=== PATIENT | female | born 1935 | race Caucasian/White ===

== ENCOUNTER 2022-08-24 10:20 | Emergency (ER) | payer MEDICARE, SELFPAY ==
[2022-08-24 10:36] VITALS: BP 157/71; PULSE 77; RESP 18; TEMP 36.6; O2SAT 100
--- NOTE | 2022-08-24 11:41 | ED.GENADULT ---
HPI - General Adult General Chief complaint: Unspecified Stated complaint: Dementia needs consult for half-way Time Seen by Provider: 08/24/22 10:53 Source: patient and family Mode of arrival: ambulatory Limitations: dementia History of Present Illness HPI narrative: Patient is an 86-year-old female who presents to the ED with concerns for half-way placement. Patient currently lives at home with her . Her is scheduled to undergo triple bypass surgery on Tuesday and will be hospitalized for at least 3 weeks, with several month rehabilitation afterwards. is concerned that the patient will not be able to take care of herself at home while he is hospitalized/recovering. Patient is never left alone by herself. He reports patient does not cook, clean, do laundry, drive. He also reports patient requires assistance with ambulation at times, assistance with going to the bathroom. They believe patient has a diagnosis of dementia, however she has not seen a primary care doctor in the last 3 years. No acute behavioral changes. They do have family that is able to help, but not for 13/09 care. Patient A&OX2 currently. Unsure of year. She is agitated, annoyed that she is at the hospital, and refusing to answer any other questions for me. Related Data Allergies Allergy/AdvReac Type Severity Reaction Status Date / Time No Known Allergies Allergy Verified 08/24/22 10:21 Review of Systems Review of Systems: ROS unobtainable: Yes unobtainable due to mental status Exam Narrative: GENERAL: Elderly, well-nourished, non-toxic, in no acute distress. HEAD: Normocephalic, atraumatic. NECK: Supple. No adenopathy, no masses. RESPIRATORY: Airway patent, respirations nonlabored. CARDIOVASCULAR: Regular rate and rhythm without murmurs, rubs, or gallops. MUSCULOSKELETAL: Moves all extremities. Strength/ROM intact without gross deformities. SKIN: Warm, dry, normal color. No rashes. NEURO: A&O X2, unsure of year. Speech clear. Cranial nerves II-XII grossly intact. Steady gait. No ataxic movements. PSYCHIATRIC: Agitated. Course Vital Signs Vital signs: Vital Signs Temperature 97.9 F 08/24/22 10:36 Pulse Rate 77 08/24/22 10:36 Respiratory Rate 18 08/24/22 10:36 Blood Pressure 157/71 H 08/24/22 10:36 Pulse Oximetry 100 08/24/22 10:36 Oxygen Delivery Room Air 08/24/22 10:36 Temperature 98.3 F 08/24/22 12:48 Pulse Rate 88 08/24/22 12:48 Respiratory Rate 16 08/24/22 12:48 Blood Pressure 142/84 H 08/24/22 12:48 Pulse Oximetry 98 08/24/22 12:48 Oxygen Delivery Room Air 08/24/22 10:36 Medical Decision Making MDM Narrative Medical decision making narrative: Patient presented to ED with concern for needing placement/respite care while undergoes upcoming hospitalization/surgery. Family concerned that patient is not able to take care of herself at home. No acute changes in patient's behavior per family to suggest need for further work-up. Vitals stable. Patient agitated, refusing to answer any questions. She was not sure of the year, but otherwise seems alert and oriented. Based on 's report of the duties he performs, patient seems appropriate for temporary placement. Care coordination with consulted to assist with care/placement possibilities. Care coordination was able to determine that patient needed the PASSR evaluation completed to determine if she qualifies for respite care. This was filled out by Care Coordination and patient did meet qualifying requirements. Information was provided to family for further instructions and placement. Patient discharged in stable condition. Given return precautions. Medical Records Medical records reviewed: Yes I reviewed the external patient's medical records. Vital Signs Vital Signs: Vital Signs Temperature 97.9 F 08/24/22 10:36 Pulse Rate 77 08/24/22 10:36 Respiratory Rate 18 08/24/22 10:36 Blood Pressu
--- NOTE | 2022-08-24 12:29 | PCCCNOTE ---
Met with son Luis Smith and Spouse Perez Chase who will have heart surgery on Tuesday and he and other family provide 24 hour care. Luis keeps saying that they need a screening and that is why she is here. He has spoken with Jo at [facility] about respite but running out of time as Tuesday is surgery. Called to Jo, she states yes that she had spoken with Luis. The screening that is needed is the through [facility] and is through [facility] if in the community, asked if this childcare attendant could do a PASSR since she is in the ER and she says yes. For [facility] they will need to pay 5,850 up front and whatever is not needed will be reimbursed to them. Jo requests that this care coodinator fax over the ER note [phone]. Since patient has not been here before or to a doctor for 3 years history discussed with patient, and son. She has some memory loss but no official dementia diagnosis. Denies any mental health diagnoses, developmental delays or genetic issues. She is not on any current medications or have any medical diagnoses that they know of. PASSR completed NO level II required ER note fax'ed to Jo as requested Family notified that the required screening was passed, and ER note was fax'd. They are agreeable to pay up front the 5,850 and to admit tomorrow or . Called Jo back with Passing PASSR screening and agreement from family. She has received the fax. Provided her with phone #'s Luis [phone], Perez [phone]. She will follow up with them tomorrow.
[2022-08-24 12:48] VITALS: BP 142/84; PULSE 88; RESP 16; TEMP 36.8; O2SAT 98
== END 2022-08-24 12:48 | disposition home or self-care (01) ==
PROVIDERS: Emergency Provider Physician Assistant; PCP Internal Medicine
DX: Z02.2 Encounter for examination for admission to residential institution (principal); F03.90 Unspecified dementia, unspecified severity, without behavioral disturbance, psychotic disturbance, mood disturbance, and anxiety
CPT/HCPCS: 99283

== ENCOUNTER 2022-11-03 13:47 | Emergency (ER) | payer MEDICARE, SELFPAY ==
[2022-11-03 13:43] VITALS: BP 130/68; PULSE 68; RESP 20; TEMP 35.7
--- NOTE | 2022-11-03 14:05 | ECG_ITS ---
Measurements Intervals [place] Rate: 60 P: SD: 0 QRS: -53 QRSD: 150 T: 106 QT: 489 QTc: 489 Interpretive Statements JUNCTIONAL ESCAPE RHYTHM RIGHT BUNDLE BRANCH BLOCK LEFT ANTERIOR FASCICULAR BLOCK LEFT VENTRICULAR HYPERTROPHY AND ST-T CHANGE BASELINE ARTIFACT- I, II, III, AVR, AVL ABNORMAL ECG NO PREVIOUS ECG AVAILABLE FOR COMPARISON Electronically Signed On 11-03-2022 19:41:00 CDT by Steve Arvizu D.O.
--- NOTE | 2022-11-03 14:13 | ED.CPR ---
HPI - CPR General Chief Complaint: Cardiac Arrest/CPR Stated Complaint: cardiac arrest Time Seen by Provider: 11/03/22 13:54 History of Present Illness HPI narrative: Patient is an 87-year-old female presenting in cardiac arrest. Patient is coming from a nursing facility. She has a POLST form stating selective treatment with no intubation. EMS reports that she had a downtime of approximately 20 minutes. When she was found by nursing facility staff she was pulseless and agonal. They started CPR. For EMS, she was in asystole. She received several rounds of epi with ROSC. Epi drip was started and patient has maintained a pulse. I-gel in place. Blood sugar was in the 60s, she received an amp. Spoke with the family who states that the patient has not been eating or drinking for at least a month now. States that she has been slowly declining for the last several months since going to a nursing facility. States that she does not want anything invasive. Related Data Allergies Allergy/AdvReac Type Severity Reaction Status Date / Time No Known Allergies Allergy Verified 08/24/22 10:21 Review of Systems Review of Systems: All systems reviewed & are unremarkable except as noted in HPI and below Exam Narrative: GENERAL: Unresponsive, Igel in place HEAD: Normocephalic EYES: Pupils are fixed and dilated at approximately 6 mm bilaterally ENT: Mucous membranes moist NECK: No deformities CHEST: I-gel in place, easily bagged HEART: Regular rate and rhythm, 1+ carotid and femoral pulses ABDOMEN: Soft, nondistended EXTREMITIES: No edema. SKIN: Cool, dry, skin tears bilateral lower extremities NEURO: Unresponsive PSYCH: Unresponsive Course Vital Signs Vital signs: Vital Signs Temperature 96.2 F L 11/03/22 13:43 Pulse Rate 68 11/03/22 13:43 Respiratory Rate 20 11/03/22 13:43 Blood Pressure 130/68 11/03/22 13:43 Oxygen Delivery Bag Valve Mask 11/03/22 13:43 Temperature 96.2 F L 11/03/22 13:43 Pulse Rate 68 11/03/22 13:43 Respiratory Rate 20 11/03/22 13:43 Blood Pressure 130/68 11/03/22 13:43 Oxygen Delivery Bag Valve Mask 11/03/22 13:43 MDM - Cardiac Arrest/CPR MDM Narrative Medical decision making narrative: Patient is an 87-year-old female presenting in cardiac arrest. Downtime approximately 20 to 30 minutes. She was in asystole on arrival of EMS. She received several rounds of epi and epi drip was started with ROSC. I-gel is in place. She remains unresponsive, pupils are dilated and fixed. POLST form states selective treatment without intubation. Patient's family arrived shortly after the patient did, they confirmed that the patient does not want anything invasive. They would like to transition to comfort measures at this time. Invasive measures were stopped and patient passed peacefully. Time of 1412. Differential Diagnosis Differential diagnosis: Likely acute respiratory failure, cardiac arrest and sudden cardiac Medical Records Attestation: I reviewed the patient's medical records. Critical Care Time Critical Care Time Critical Care Time: Yes Total Critical Care Time: 32 Discharge Plan Discharge Clinical Impression: Cardiac arrest Patient Disposition: Condition: Follow-up/Referrals: Uzma,MD Yifan [Primary Care Provider] -
--- NOTE | 2022-11-03 14:37 | PC.NURSE ---
At [address] Pérez notified and pronounced time of at 1412
== END 2022-11-03 15:10 | disposition expired ==
PROVIDERS: Emergency Provider Emergency Medicine; PCP Internal Medicine
DX: I46.9 Cardiac arrest, cause unspecified (principal); I45.2 Bifascicular block; I51.7 Cardiomegaly
CPT/HCPCS: 92950; 93005; 99285